=== PATIENT | female | born 1975 | race Caucasian/White ===

== ENCOUNTER 2019-03-27 05:37 | Emergency (ER) | payer OTHER ==
[~2019-03-27] VITALS: Ht 165.1 cm; Wt 86.2 kg
[2019-03-27] MEDS ORDERED: IV NORMAL SALINE 1,000ML 1,000 ML IV SCH (06:09)
[2019-03-27] MEDS ORDERED: IPRATRPIUM/ALBUTEROL 0.5/2.5MG 3 ML NEBU. NEB ONE (06:15)
[2019-03-27] MEDS ORDERED: methylPREDNISolone SOD SUCC PF 125 MG/2 ML VIAL. IV ONE (06:15)
--- NOTE | 2019-03-27 06:19 | PHYS DOC ---
Past History Past Medical History: Asthma, Other Additional Past Medical Histor: BRONCHITIS Past Surgical History: Appendectomy, Cholecystectomy, , Tonsillectomy, Other Additional Past Surgical Histo: TUBAL LIGATION Alcohol Use: None Drug Use: None Adult General Chief Complaint Chief Complaint: SHORTNESS OF BREATH HPI HPI Patient is a 44-year-old female who presents with complaint of cough and shortness of breath for the last couple months. Patient indicates that she has been on oral antibiotics and steroids and is currently finishing up her most recent steroid taper. She states that symptoms are just not improving. She states that in fact they're getting worse. She states that shortness of breath is worsened with exertion. She does admit to being a recent smoker but states that she has quit since onset of symptoms. She is not aware of any fever. She states that cough is been dry. She does admit to some discomfort in her chest that she feels is likely due to having to work hard at breathing as well as the coughing. She denies any lower extremity swelling or pain. She denies any nausea, vomiting or diaphoresis.[] Review of Systems Review of Systems Constitutional: Denies fever or chills [] Respiratory: Positive cough and shortness of breath [] Cardiovascular: No additional information not addressed in HPI [] GI: Denies abdominal pain, nausea, vomiting or diarrhea [] Integument: Denies rash or skin lesions [] Neurologic: Denies headache, focal weakness or sensory changes [] All other systems were reviewed and found to be within normal limits, except as documented in this note. Current Medications Current Medications Current Medications Medications (Trade) Dose Ordered Sig/[facility] Start Time Stop Time Status Last Admin Dose Admin Albuterol/ Ipratropium (Duoneb) 3 ml 1X ONCE 03/27/19 06:15 03/27/19 06:16 UNV Methylprednisolone Sodium Succinate (SOLU-Medrol 125MG VIAL) 125 mg 1X ONCE 03/27/19 06:15 03/27/19 06:16 UNV Sodium Chloride 1,000 ml @ 1,000 mls/hr Q1H 03/27/19 06:09 03/27/19 07:08 UNV Physical Exam Physical Exam Constitutional: Well developed, well nourished, no acute distress, non-toxic ap pearance. [] HENT: Normocephalic, atraumatic, bilateral external ears normal, oropharynx moist, no oral exudates, nose normal. [] Eyes: PERRLA, EOMI, conjunctiva normal, no discharge. [] Neck: Normal range of motion, no tenderness, supple, no stridor. [] Cardiovascular: Regular rate and rhythm[] Lungs & Thorax: Lungs reveal diminished breath sounds in the right lung base but are otherwise clear to auscultation [] Abdomen: Bowel sounds normal, soft, no tenderness. [] Skin: Warm, dry, no erythema, no rash. [] Extremities: No tenderness, no cyanosis, no clubbing, ROM intact, no edema. [] Neurologic: Alert and oriented X 3, no focal deficits noted. [] Current Patient Data Vital Signs Vital Signs Date Time Temp Pulse Resp B/P (MAP) Pulse Ox O2 Delivery O2 Flow Rate FiO2 03/27/19 05:40 98.2 78 20 98 Room Air EKG EKG [] Radiology/Procedures Radiology/Procedures [] Impressions: PROCEDURE: CHEST PA & LATERAL CHEST PA LATERAL History: Shortness of breath. Wheezing. Comparison: None. Findings: No consolidation or pleural effusion. Normal heart size. Impression: 1. No acute cardiopulmonary process. Electronically signed by: Hector Kim DO (03/27/2019 7:05 AM) [facility] Course & Med Decision Making Course & Med Decision Making Pertinent Labs and Imaging studies reviewed. (See chart for details) [] Dragon Disclaimer Dragon Disclaimer This electronic medical record was generated, in whole or in part, using a voice recognition dictation system. Departure Departure: Impression: Primary Impression: Bronchitis with bronchospasm Disposition: 01 HOME, SELF-CARE Condition: STABLE Referrals: KJ WARD (PCP) Patient Instructions: Acute Bronchitis, Bronchospasm, Adult Scripts Amoxicillin/Potassium Clav (AUGMENTIN 875-125 TABLET) 1 Each Tablet 1 TAB PO BID for infection for 10 Days, #20 TAB 0 Refills Prov: YOSVANY STALLINGS Jr., DO 03/27/19 YOSVANY STALLINGS Jr., DO Mar 27, 2019 06:19
--- NOTE | 2019-03-27 07:08 | RAD ---
CHEST PA LATERAL History: Shortness of breath. Wheezing. Comparison: None. Findings: No consolidation or pleural effusion. Normal heart size. Impression: 1. No acute cardiopulmonary process. Electronically signed by: Hector Kim DO (03/27/2019 7:05 AM) [facility]
[2019-03-27 07:29] LABS: BASO % 0 % (0-3); EOS % 0 % (0-3); HEMATOCRIT 44.4 % (36.0-47.0); HEMOGLOBIN 14.5 g/dL (12.0-15.5); LYMPH # 1.3 x10^3/uL (1.0-4.8); LYMPH % 22 % (24-48); MEAN CORPUSCULAR HEMOGLOBIN 28 pg (25-35); MEAN CORPUSCULAR HGB CONC 33 g/dL (31-37); MEAN CORPUSCULAR VOLUME 87 fL (79-100); MONO # 0.2 x10^3/uL (0.0-1.1); MONO % 3 % (0-9); NEUT # 4.4 x10^3uL (1.8-7.7); NEUT % 75 % (31-73); PLATELET COUNT 254 x10^3/uL (140-400); RED BLOOD COUNT 5.12 x10^6/uL (3.50-5.40); RED CELL DISTRIBUTION WIDTH 16.5 % (11.5-14.5); WHITE BLOOD COUNT 5.9 x10^3/uL (4.0-11.0)
[2019-03-27 07:51] LABS: ALBUMIN 4.2 g/dL (3.4-5.0); ALBUMIN/GLOBULIN RATIO 0.9 (1.0-1.7); CALCIUM 9.5 mg/dL (8.5-10.1); CREATININE 0.7 mg/dL (0.6-1.0); GFR 91.3; POTASSIUM 3.8 mmol/L (3.5-5.1); TOTAL BILIRUBIN 0.5 mg/dL (0.2-1.0); TOTAL PROTEIN 8.7 g/dL (6.4-8.2)
[2019-03-27 08:03] LABS: INFLUENZA A PATIENT NEGATIVE (NEGATIVE); INFLUENZA B PATIENT NEGATIVE (NEGATIVE)
[2019-03-27] MEDS ORDERED: AMOX1TAB61 PO (08:04)
[2019-03-27] MEDS ORDERED: IV NORMAL SALINE 50ML 50 ML ONE (08:06)
[2019-03-27] MEDS ORDERED: cefTRIAXone SODIUM 1 GM VIAL ONE (08:06)
[2019-03-27 08:15] VITALS: BP 120/59
== END 2019-03-27 08:32 | disposition home or self-care (01) ==
LOC: ER 05:37
DX: J45.909 Unspecified asthma, uncomplicated (principal); Z90.89 Acquired absence of other organs
CPT/HCPCS: 36415; 71046; 80053; 81025; 83880; 84484; 85025; 85379; 87804; 94640; 96374; 96375; 99285; J0696; J2930; J7620; J7030